=== PATIENT | male | born 1985 | race Hispanic/Latino ===

== ENCOUNTER 2016-10-04 09:42 | Emergency (ER) | payer OTHER ==
[2016-10-04 09:47] VITALS: BP 137/87; PULSE 86; RESP 17; TEMP 98.1; O2SAT 98
--- NOTE | 2016-10-04 10:19 | ED PDOC ---
HPI: General Adult Time Seen by Provider: 10/04/16 10:18 Chief Complaint (Nursing): Trauma Chief Complaint (Provider): fall History Per: Patient Additional Complaint(s): 31 year old right hand dominant male presents with low back pain and pain to right arm s/p trip and fall off of a ladder just prior to arrival. Patient did not sustain LOC or head injury. He has been able to walk since time of injury and denies any pain to lower extremities. Patient also sustained abrasions to right hand and elbow and he is not sure of last tetanus shot. Past Medical History Reviewed: Historical Data Vital Signs: Last Vital Signs Temp 98.1 F 10/04/16 09:46 Pulse 86 10/04/16 09:46 Resp 17 10/04/16 09:46 BP 137/87 10/04/16 09:46 Pulse Ox 98 10/04/16 10:19 - Medical History PMH: HTN - Surgical History Other surgeries: cleft palate surgical repair, tongue biopsy - Family History Family History: States: No Known Family Hx - Living Arrangements Living Arrangements: With Family - Social History Current smoker - smoking cessation education provided: No Ex-Smoker (has not smoked in the last 12 months): Yes (quit at age 21) Alcohol: Social Drugs: Cannabis - Home Medications Home Medications: Ambulatory Orders Medication Instructions Recorded Cyclobenzaprine [Cyclobenzaprine 10 mg PO TID PRN #15 tab 10/04/16 HCl] Naproxen [Naprosyn] 500 mg PO BID #20 tab 10/04/16 - Allergies Allergies/Adverse Reactions: Allergies Allergy/AdvReac Type Severity Reaction Status Date / Time latex Allergy ITCHING Verified 10/04/16 10:00 Review of Systems ROS Statement: Except As Marked, All Systems Reviewed And Found Negative Musculoskeletal: Positive for: Other (right arm pain, low back pain s/p fall) Neurological: Positive for: Other (denies head injury or LOC) Physical Exam - Reviewed Nursing Documentation Reviewed: Yes Vital Signs Reviewed: Yes - Physical Exam Appears: Positive for: Well, Non-toxic, No Acute Distress Head Exam: Positive for: ATRAUMATIC, NORMAL INSPECTION Skin: Negative for: Rash Eye Exam: Positive for: Normal appearance, EOMI, PERRL Neck: Positive for: Painless ROM. Negative for: Pain On Movement Of Neck Cardiovascular/Chest: Positive for: Regular Rate, Rhythm Respiratory: Positive for: Normal Breath Sounds. Negative for: Wheezing, Respiratory Distress Back: Positive for: Vertebral Tenderness (midline to lumbar spine, no step off, negative bilateral straight leg raise). Negative for: L CVA Tenderness, R CVA Tenderness Extremity: Positive for: Other (abrasion to palmar aspect of right hand and olecranon, tenderness and swelling right olecranon and wrist, no snuff box tenderness, full rom all digits of right hand with normal distal sensation and normal cap refill, no swelling or tenderness to right hand) Neurologic/Psych: Positive for: Alert, Oriented, Gait (steady) - ECG O2 Sat by Pulse Oximetry: 98 Pulse Ox Interpretation: Normal - Other Rad L/S Spine X-ray X-Ray: Interpreted by Me, Viewed By Me X-Ray Interpretation: no fx, no dis Right elbow and wrist x-ray X-Ray: Interpreted by Me, Viewed By Me X-Ray Interpretation: no fx, no dis Medical Decision Making Medical Decision Makin31 year old male with right arm pain and back pain s/p trip and fall Plan: PO motrin for pain Tetanus booster X-ray right elbow and wrist X-ray L/S Spine Procedure Note: Abrasions to right hand and elbow were cleansed with NS and betadine, bacitracin and bandages applied, Velcro splint applied to right wrist , N/V intact s/p placement. RICE instructions given, rx naprosyn and flexeril, ortho referral for follow up. Disposition - Clinical Impression Clinical Impression: Elbow sprain, Wrist sprain, Lumbar strain, Abrasions of multiple sites, Requires a booster tetanus - Patient ED Disposition Is Patient to be Admitted: No Counseled Patient/Family Regarding: Studies Performed, Diagnosis, Need For Followup, Rx Given - Disposition Referrals: Dick Horton III, MD [Staff Provider] - Disposition: Routine/Home Disposition Time: 12:55 Condition: STABLE Additional Instructions: Ice, rest and elevate affected areas. Take rx meds as directed. Follow up with orthopedist for any persistent symptoms. Prescriptions: Cyclobenzaprine [Cyclobenzaprine HCl] 10 mg PO TID PRN #15 tab PRN Reason: Muscle Pain Naproxen [Naprosyn] 500 mg PO BID #20 tab Instructions: Back Pain (ED), Abrasion (ED), Wrist Injury (ED), Elbow Sprain ( ED), Diphtheria/Acellular Pertussis/Tetanus Booster Vaccine (Tdap) (Injection) Forms: [employer] (Green[place]ic)
[2016-10-04] MEDS ORDERED: TDAP Vaccine 0.5 mL Syr IM ONE (11:03)
--- NOTE | 2016-10-04 12:08 | RAD ---
PROCEDURE: Right Wrist Radiographs. HISTORY: trauma COMPARISON: None. FINDINGS: BONES: Normal. No fracture. JOINTS: Normal. No dislocation. SOFT TISSUES: Normal. OTHER FINDINGS: None. IMPRESSION: Unremarkable right wrist radiographs. Concordant results with the preliminary interpretation rendered by the emergency department physician procedure.
--- NOTE | 2016-10-04 12:09 | RAD ---
PROCEDURE: Radiographs of the Lumbar Spine. HISTORY: trauma COMPARISON: No prior. FINDINGS: BONES: No acute fracture. Endplate sclerosis and hypertrophic changes L3-L4 likely atypical Schmorl node. DISC SPACES: Unremarkable. OTHER FINDINGS: None. IMPRESSION: No acute findings related to/accounting for the clinical presentation. Additional benign and/or incidental findings described above. Concordant results with the preliminary interpretation rendered by the emergency department physician procedure.
--- NOTE | 2016-10-04 15:39 | RAD ---
PROCEDURE: Radiographs of the right elbow. HISTORY: trauma COMPARISON: None available FINDINGS: BONES: No acute displaced fracture. JOINTS: No dislocation. SOFT TISSUES: Unremarkable. No evidence of radiopaque foreign body. JOINT EFFUSION: No significant joint effusion. OTHER FINDINGS: None IMPRESSION: No acute displaced fracture, dislocation, or significant joint effusion identified. If symptoms persist, or if there is continued clinical concern, x-ray follow-up in 7-10 days should be considered.
== END 2016-10-04 13:06 | disposition home or self-care (01) ==
LOC: H.ER 09:42
DX: S39.012A Strain of muscle, fascia and tendon of lower back, initial encounter (principal); S53.401A Unspecified sprain of right elbow, initial encounter; S60.511A Abrasion of right hand, initial encounter; W11.XXXA Fall on and from ladder, initial encounter; Y92.89 Other specified places as the place of occurrence of the external cause; I10 Essential (primary) hypertension